=== PATIENT | female | born 1945 | race Two or more races ===

== ENCOUNTER 2024-08-19 17:38 | Inpatient (IN) | payer MEDICARE, SELFPAY ==
[2024-08-19] VITALS (10 sets, daily range): BP systolic 140–177; BP diastolic 55–91; PULSE 79–104; RESP 17–98; TEMP 36.4–36.8; O2SAT 96–99
--- NOTE | 2024-08-19 17:44 | EKG_ITS ---
[facility] Test Date: 2024-08-19 Pat Name: STEVEN HARTLEY Department: Room: - Gender: Female 20 Dealer: : 1945 Requested By: Elen Jordan Order Number: [id number] Reading MD: Elen Jordan Measurements Intervals [place] Rate: 91 P: 61 MN: 164 QRS: 11 QRSD: 140 T: 100 QT: 403 QTc: 497 Interpretive Statements SINUS RHYTHM LEFT BUNDLE BRANCH BLOCK [120+ ms QRS DURATION, 80+ ms Q/S IN V1/V2, 85+ ms R IN I/aVL/V5/V6] No previous ECG available for comparison /store/S0/[id number].pdf
--- NOTE | 2024-08-19 17:44 | XR_ITS ---
Examination: CTA carotids with intravenous contrast CTA brain, head with intravenous contrast. 2-D sagittal, coronal reconstructions. 3-D reconstructions. Exam date and time: August 19, 2024 1757 hrs. Indications: Stroke alert, onset slurred speech focal neurologic deficit today CTDI: vol (mGy) 15.9 DLP: (mGycm) 426 Technique: Multiple CTA axial brain, head carotid images post intravenous contrast injection 75 cc, [id number]. 2-D sagittal, coronal reconstructions. 3-D reconstructions, 3-D post processing including vascular maximum intensity projection images. Low dose protocols were performed. One or more of the following dose reduction techniques were used; automated exposure control, adjustment of the mA and/or KV according to patient size, use of iterative reconstruction technique. Findings: 6 mm right thyroid nodule Small blebs in the upper right lung zone Moderate calcification left carotid bifurcation but no critical stenoses involving left carotid bifurcation left common carotid artery or internal carotid artery in the neck Very heavy calcification at the right carotid bifurcation and the origin of the right internal carotid artery, estimated 70-80% stenosis Codominant vertebral arteries with no critical stenoses No cerebral large vessel arterial occlusions or thrombus Impression: Very heavy calcification right carotid bifurcation and origin right internal carotid artery, estimated 70-80% stenosis No cerebral large vessel occlusions or thrombus
--- NOTE | 2024-08-19 17:44 | XR_ITS ---
Examination: CT brain head without contrast. 2-D sagittal coronal reconstructions Date and time of exam:August 19, 2024 1747 hrs. Indications: Stroke alert, onset slurred speech unsteady gait beginning 10:00 AM this morning CTDI: vol (mGy):46.1 DLP: (mGycm):901 Technique: Multiple CT axial sections of the brain have been obtained, 5 mm slice thickness. Contrast has not been administered. 2-D sagittal, coronal reconstructions have been obtained Low dose protocols were performed. One or more of the following dose reduction techniques were used; automated exposure control, adjustment of the mA and/or KV according to patient size, use of iterative reconstruction technique. Findings: No significant ventricular enlargement. Small cerebral calcifications noted on the CT brain scan January 21, 2010 Intra-axial or extra-axial hemorrhage density is not seen. No mass effect or midline shift Basal cisterns are not remarkable. Fourth ventricle is midline. Cranial vault intact. Impression: Negative for acute hemorrhage, mass effect or midline shift
--- NOTE | 2024-08-19 17:45 | EDNOTE_ITS ---
Neuro Symptoms Deficit-RME/HPI General Chief Complaint: Neuro Symptoms/Deficit Stated Complaint: SLURR SPEECH UNSTEADY GATE SINCE 1000 Time Seen by Provider: 08/19/24 17:44 Arrival date/time: 08/19/24 17:38 RME / HPI RME / HPI Narrative: 79-year-old female patient with significant history of hypertension, hypercholesterolemia, was brought in by her son for evaluation regarding strokelike symptoms. Patient was noted to have strokelike symptoms described as slurring of speech, unsteady gait, since 10:00 this morning. Patient denies any headache denies any dizziness. Denies any vomiting denies any chest pain denies any recent fall or trauma. Denies any abdominal pain denies any weakness both upper lower extremity. Patient is able to ambulate with assistance. Related Data Home Medications ?Medication ?Instructions ?Recorded ?Confirmed loratadine 10 mg tablet (Claritin) 10 mg PO QDAY #0 tabs 02/21/14 03/31/22 aspirin 81 mg tablet,delayed 81 mg PO QDAY 03/28/22 03/31/22 release Allergies Allergy/AdvReac Type Severity Reaction Status Date / Time codeine Allergy Severe Dizziness Verified 03/28/22 14:09 Review of Systems Review of Systems Narrative Review of Systems: Review of system reviewed and within normal limits except mentioned in HPI ED Exam Narrative Physical exam: VITAL SIGNS: Reviewed. GENERAL APPEARANCE: Alert and interactive, follows commands, no acute distress, HEAD AND FACE: Non-traumatic. ENT: PERRL, pink conjunctivitis, eyelid no trauma, Mucous membrane moist. NECK: Supple, nontender, no nuchal rigidity. CHEST: No tenderness, no crepitus, no paradoxical movement, no retractions. LUNGS: Clear, well ventilated, symmetric, no rales, no wheezing, no ronchi, no stridor, good breath sounds bilaterally. HEART: Regular rate, regular rhythm, no murmur, no gallops. ABDOMEN: Soft, positive bowel sounds, nondistended, no guarding, nontender, no rebound, no masses, RECTAL: Deferred. GENITAL: Deferred. NEUROLOGICAL: Gross motor function intact sensory function intact, Appropriate for age. MUSCULOSKELETAL: low back nontender, full range of motion. EXTREMITIES: Nontender, full range of motion. SKIN: Color pink, dry, no rash, no lacerations, no abrasions, no contusions. LYMPHATICS: Deferred. Course Quality Measures none Orders Category Date Time Status Bedside Blood Glucose NOW Care 08/19/24 17:44 Active COVID-19 Screening Questionnaire NOW Care 08/19/24 20:05 Active COVID-19 Screening Questionnaire NOW Care 08/19/24 20:07 Active Gauge Maker NOW Care 08/19/24 17:44 Active Continuous Pulse Oximetry NOW Care 08/19/24 17:44 Completed Decision to Admit X1 Care 08/19/24 20:05 Active Decision to Admit X1 Care 08/19/24 20:07 Active EKG (ED ONLY) *Do not use* NOW Care 08/19/24 17:44 Completed In and Out Catheter NEEDED Care 08/19/24 17:44 Active Insert IV NOW Care 08/19/24 17:44 Active NIH Stroke Scale now Care 08/19/24 17:44 Active NPO NOW Care 08/19/24 17:44 Active Nurse Swallow Screen x1 Care 08/19/24 17:44 Active Consult to Neurology / Tele-Neurology Routine Cons 08/19/24 17:[address] angio stroke protocol Stat Exams 08/19/24 17:[address] stroke protocol Stat Exams 08/19/24 17:44 Completed EKG (ED Only) Stat Exams 08/19/24 17:44 Draft CBC Stat Lab 08/19/24 17:45 Completed Comprehensive Metabolic Panel Stat Lab 08/19/24 17:45 Completed Drug Screen,Urine Stat Lab 08/19/24 19:15 Completed Magnesium Stat Lab 08/19/24 17:45 Completed Partial Thromboplastin Time Stat Lab 08/19/24 17:45 Completed Prothrombin Time with INR Stat Lab 08/19/24 17:45 Completed Troponin I Stat Lab 08/19/24 17:45 Completed Urinalysis Stat Lab 08/19/24 19:15 Completed Urine Culture Stat Lab 08/19/24 19:15 Received Aspirin Med 08/19/24 18:14 Discontinued 325 mg PO X1 ONE Ondansetron Inj [Zofran Inj] Med 08/19/24 17:44 Active 4 mg IV Q4HR PRN Potassium Chloride [K-Dur] Med 08/19/24 20:03 Discontinued 40 meq PO X1 ONE Oxygen Delivery NOW RT 08/19/24 17:44 Active Vital Signs Vital signs: Vital Signs Temperature 98.3 F 08/19/24 17:41 Pulse Rate 104 H 08/19/24 17:41 Respiratory Rate 18 08/19/24 17:41 Blood Pressure 172/78 H 08/19/24 17:41 Pulse Oximetry (%) 96 08/19/24 17:41 Oxygen Delivery Method Room Air 08/19/24 17:41 Neuro Symptoms / Deficit MDM Narrative MDM Narrative:: 79-year-old female patient with significant history of hypertension, hypercholesterolemia, was brought in by her son for evaluation regarding strokelike symptoms. Patient was noted to have strokelike symptoms described as slurring of speech, unsteady gait, since 10:00 this morning. Patient denies any headache denies any dizziness. Denies any vomiting denies any chest pain denies any recent fall or trauma. Denies any abdominal pain denies any weakness both upper lower extremity. Patient is able to ambulate with assistance. Stroke alert was initiated right away on my initial evaluation. Patient's workup today all came back unremarkable except for potassium is slightly low, 3.2. CT scan of the head came back unremarkable CTs angiogram of the head and neck also came back unremarkable. I spoke with teleneurologist and recommend admission and recommends full dose of aspirin x 1 and 81 mg of aspirin tomorrow. Patient is to be admitted for stroke workup. Patient data External records reviewed:: None Clinical information provided by:: patient Social determinants that could affect healthcare access:: none Patient has the following chronic illnesses:: Hypertension How is presenting disease/condition affected by chronic disease/condition?: exacerbated by Evaluation data The following diagnostics were reviewed and interpreted by me:: lab results, radiology exam(s) and EKG tracing(s) Lab and/or radiology exams considered but not ordered:: None Interpretation Summary: EKG showed sinus rhythm, ventricular rate of 91 bpm, PA interval 164 MS, ST segment elevation depression noted. CT scan of the head came back unremarkable except angiogram of the neck came back unremarkable. Laboratory Significant potassium 3.2 otherwise unremarkable. Medications / Prescriptions Medications or Prescriptions considered but not ordered:: None Medication administrations:: Medication Administration History Ondansetron HCl (Ondansetron Inj 2 Mg/Ml Inj 2 Ml) 4 mg IV Q4HR PRN PRN Reason: NAUSEA OR VOMITING Stop: 09/18/24 17:43 Discontinued Medications Aspirin (Aspirin 325 Mg Tablet) 325 mg PO X1 ONE Stop: 08/19/24 18:15 Last Admin: 08/19/24 18:25 Dose: 325 mg Documented By: AM Potassium Chloride (Potassium Chloride 20 Meq Tabcr) 40 meq PO X1 ONE Stop: 08/19/24 20:04 Aspirin, potassium, Zofran Consultations Consultation(s) initiated? (list below): No Diagnosis Neuro Differential Diagnosis: delirium and cerebrovascular accident Most likely diagnosis given after review of the tests above:: Strokelike symptoms Admission Indicated Admission indicated?: indicated Explain why admission is indicated or not indicated:: Patient is to be admitted for stroke workup Admission Request Was there a request for admission?: Yes Admission Attestation Admission request attestation: Discussed case with resident from Hospitalist service regarding admission. Discussed patients ED course, exam findings, labs, and radiology results. The Hospitalist [agrees, ] to accept the patient for admission. Disposition Plan Disposition Plan: Admit Discharge Plan Plan Patient Disposition: Admit Acute Care w/in Hospital Disposition Comment: stable Prescriptions/Referrals Prescriptions/Med Rec: No Action loratadine [Claritin] 10 MG tablet 10 mg PO QDAY Qty: 0 aspirin 81 mg Tablet,Delayed Release (Dr/Ec) 81 mg PO QDAY Referrals: Ag Rosa MD [Primary Care Provider] - In 1 week Problem List Clinical Impression: Stroke-like symptom Patient/Caregiver Discharge Instructions Discharge Activity: activity as tolerated Print Language: Montenegrin Stand Alone Forms: Lillian Award Info., Patient Portal Info Letter
[2024-08-19 18:02] LABS: Basophils # (Auto) 0.1 Thou/mm3 (0.0-0.2); Basophils % (Auto) 1 % (0-2.5); Eosinophils # (Auto) 0.1 Thou/mm3 (0.0-0.5); Eosinophils % (Auto) 2 % (0-10); Hemoglobin 13.7 g/dL (12.0-16.0); Immature Granulocytes % (Auto) 0 % (0-0); Immature Granulocytes Auto 0.01 Thou/mm3 (0.00-0.00); Lymphocytes # (Auto) 1.7 Thou/mm3 (1.0-4.8); Lymphocytes % (Auto) 28 % (10-50); Mean Corpuscular HGB Conc 33.4 g/dl (31.0-37.0); Mean Corpuscular Hemoglobin 30.4 pg (25.0-35.0); Mean Corpuscular Volume 91 fL (80-100); Monocytes # (Auto) 0.5 Thou/mm3 (0.0-0.8); Monocytes % (Auto) 9 % (0-12); Neutrophils # (Auto) 3.6 Thou/mm3 (1.8-7.7); Neutrophils % (Auto) 60 % (37-80); Nucleated Red Blood Cell % 0 /100 WBC (0); Platelet Count 212 Thou/mm3 (140-440); RDW Standard Deviation 40.8 fL (36.4-46.3); Red Blood Count 4.51 Miln/mm3 (4.00-5.20); White Blood Count 6.1 Thou/mm3 (3.6-11.0)
[2024-08-19 18:19] LABS: INR 0.9 (0.9-1.3); Partial Thromboplastin Time 25.6 Seconds (22.0-36.0); Prothrombin Time 10.3 Seconds (9.0-12.2)
[2024-08-19 18:21] LABS: Anion Gap 7 (7-16); Blood Urea Nitrogen 17 mg/dL (9-23); Carbon Dioxide 26.1 mMol/L (20.0-31.0); Chloride 107 mMol/L (98-107); Potassium 3.2 mMol/L (3.4-5.1); Sodium 140 mMol/L (136-145)
[2024-08-19 18:22] LABS: Alanine Aminotransferase 12 U/L (10-49); Albumin, Serum 4.5 gm/dL (3.4-4.8); Albumin/Globulin Ratio 1.7 (1.2-2.2); Alkaline Phosphatase 146 U/L (46-116); Aspartate Amino Transferase 14 U/L (0-34); BUN/Creatinine Ratio 21 Ratio (12-20); Bilirubin,Total 0.2 mg/dL (0.3-1.2); Calcium 9.1 mg/dL (8.3-10.6); Calcium (Corrected) 9.1 mg/dL (8.5-10.1); Creatinine (Component) 0.8 mg/dL (0.6-1.3); Globulin 2.6 gm/dL (2.3-3.5); Glucose 169 mg/dL (74-106); Osmolality,Calculated 284 (275-295); Total Protein 7.1 gm/dL (5.7-8.2); Troponin I < 0.020 ng/mL (0.0-0.045); eGFR > 60 See Note
[2024-08-19] MEDS: Aspirin 325 MG TABLET PO (18:25)
--- NOTE | 2024-08-19 19:08 | ESCONSULT_ITS ---
Tele Neuro Consultation Consultation Date 08/19/24 Most Recent Vital Signs Last Vital Signs Temp 97.6 F 08/19/24 18:33 Pulse 93 08/19/24 18:33 Resp 17 08/19/24 18:33 BP 177/81 H 08/19/24 18:33 Pulse Ox 98 08/19/24 18:33 O2 Del Method Room Air 08/19/24 17:41 Laboratory-Coagulation Panel PT 10.3 Seconds (9.0-12.2) 08/19/24 17:45 INR 0.9 (0.9-1.3) 08/19/24 17:45 APTT 25.6 Seconds (22.0-36.0) 08/19/24 17:45 Consultation Narrative [facility] Patient Name:???STEVEN HARTLEY Date of :???1945 Identification Number:??? Date of Service:???08/19/2024 17:52:10 Diagnosis:?R47.81 - Slurred speech Impression: ?79 year old female with hypertension and hyperlipidemia, here with 2 weeks of gait stability and a transient episode of slurred speech noted by her son this morning. Currently she is back to baseline with a Stroke Scale of zero. Head CT is negative for acute abnormalities. She will be admitted for stroke rule out. ? ?PLAN ?- CTA head/neck ?- MRI brain w/o contrast ?- TTE w/bubble ?- check a1c and LDL ?- monitor on tele for afib ?- neuro to follow --- ? Our recommendations are outlined below. Recommendations: ? Stroke/Telemetry Floor ? Neuro Checks ? Bedside Swallow Eval ? DVT Prophylaxis ? IV Fluids, Normal Saline ? Head of Bed 30 Degrees ? Euglycemia and Avoid Hyperthermia (PRN Acetaminophen) Sign Out: ? Discussed with Emergency Department Provider Advanced Imaging: Advanced Imaging Deferred because: Non-disabling symptoms as verified by the patient; no cortical signs so not consistent with LVO Metrics: Last Known Well: 08/19/2024 10:00:00 Dispatch Time: 08/19/2024 17:52:10 Arrival Time: 08/19/2024 17:44:00 Initial Response Time: 08/19/2024 17:56:20Symptoms: slurred speech, gait imbalance. Initial patient interaction: 08/19/2024 18:04:29 NIHSS Assessment Completed: 08/19/2024 18:05:09Patient is not a candidate for Thrombolytic. Thrombolytic Medical Decision: 08/19/2024 18:05:10Patient was not deemed candidate for Thrombolytic because of following reasons: LKW outside 4.[address] head showed no acute hemorrhage or acute core infarct. Primary Provider Notified of Diagnostic Impression and Management Plan on: 08/19/2024 18:20:05 History of Present Illness:Patient is a 79 year old Female. Patient was brought by private transportation with symptoms of slurred speech, gait imbalance. 79-year-old female with hypertension and hyperlipidemia who is here with two weeks of gait instability. Son reports that patient has been off balance and not acting like a normal self. He noted an episode of slurred speech around 10:00 a.m. this morning, became concerned and brought her here to the ER. On my assessment Stroke Scale was zero. Exam is non-focal. Patient herself reports feeling at her baseline. Past Medical History: ?Hypertension ?Hyperlipidemia No Anticoagulant use? Antiplatelet use:?Yes?asa Reviewed EMR for current medications Allergies:? Reviewed Social History: Drug Use: No Family History: There is no family history of premature cerebrovascular disease pertinent to this consultation ROS : 14 Points Review of Systems was performed and was negative except mentioned in HPI. Past Surgical History: There Is No Surgical History Contributory To Today?s Visit Examination: 1A: Level of Consciousness - Alert; keenly responsive?+ 0 1B: Ask Month and Age - Both Questions Right?+ 0 1C: Blink Eyes & Squeeze Hands - Performs Both Tasks?+ 0 2: Test Horizontal Extraocular Movements - Normal?+ 0 3: Test Visual Mayes - No Visual Loss?+ 0 4: Test Facial Palsy (Use Grimace if Obtunded) - Normal symmetry?+ 0 5A: Test Left Arm Motor Drift - No Drift for 10 Seconds?+ 0 5B: Test Right Arm Motor Drift - No Drift for 10 Seconds?+ 0 6A: Test Left Leg Motor Drift - No Drift for 5 Seconds?+ 0 6B: Test Right Leg Motor Drift - No Drift for 5 Seconds?+ 0 7: Test Limb Ataxia (FNF/Heel-Anderson) - No Ataxia?+ 0 8: Test Sensation - Normal; No sensory loss?+ 0 9: Test Language/Aphasia - Normal; No aphasia?+ 0 10: Test Dysarthria - Normal?+ 0 11: Test Extinction/Inattention - No abnormality?+ 0 NIHSS Score:?0 Pre-Morbid Modified [place] Scale:0 Points = No symptoms at all Spoke with :?er provider This consult was conducted in real time using interactive audio and video technology. Patient was informed of the technology being used for this visit and agreed to proceed. Patient located in hospital and provider located at home/office setting. Patient is being evaluated for possible acute neurologic impairment and high probability of imminent or life-threatening deterioration. I spent total of 20 minutes providing care to this patient, including time for face to face visit via telemedicine, review of medical records, imaging studies and discussion of findings with providers, the patient and/or family. Dr Aide Mora [facility] For Inpatient follow-up with [facility] physician please call [facility] at . As we are not an outpatient service for any post hospital discharge needs please contact the hospital for assistance. If you have any questions for the [facility] physicians or need to reconsult for clinical or diagnostic changes please contact us via [facility] at .
[2024-08-19 19:26] LABS: Collection Type, Urine Clean Catch
[2024-08-19 19:51] LABS: Amphetamine/Methamp Scrn,U Negative (Negative); Barbiturate Screen,Urine Negative (Negative); Benzodiazepines Screen,Urine Negative (Negative); Benzoylecgonine Screen, Ur Negative (Negative); Fentanyl Screen,Urine Negative (Negative); Opiate Screen,Urine Negative (Negative); THC Screen,Urine Negative (Negative)
[2024-08-19 19:59] LABS: Bilirubin,Urine Negative (Negative); Blood,Urine Trace (Negative); Clarity,Urine Clear (Clear/Hazy); Color,Urine Lt-Yellow (Lt Yel-Yel); Glucose, Urine Negative (Negative); Ketones,Urine Negative (Negative); Leukocyte Esterase,Urine Positive (Negative); Nitrite,Urine Negative (Negative); PH,Urine 6.5 (5.0-7.0); Protein,Urine Trace (Neg - Trace); RBC,Urine 14 /hpf (0-3); Specific Gravity,Urine 1.044 (1.001-1.035); Squamous Epithelial Cell,Urine < 1 /hpf (0-5); Urobilinogen,Urine Negative mg/dL (0.0-1.0); WBC,Urine 29 /hpf (0-5)
[2024-08-19] MEDS: POTASSIUM CHLORIDE 20 mEq TABCR 40 MEQ PO (20:22)
[2024-08-19 22:30] LABS: Glucose Estimated Average 114 mg/dL (80-131); Hemoglobin A1C 5.6 % Hgb (4.8-6.0)
--- NOTE | 2024-08-19 22:31 | ESHP_ITS ---
<Statement entered by Kenny Couch MD - 08/20/24 00:00> 79-year-old female with past medical history of hypertension hyperlipidemia presents to the ED with chief complaint of slurred speech today at 10 AM that began today at 10 AM. Stroke alert was called in the ER and teleneuro was consulted who recommended admission for further stroke workup. CT head negative and CTA head and neck completed which showed 80% stenosis of right internal carotid artery. At the time of evaluation, NIHSS score is 0 and patient returned to baseline. Will admit to telemetry as per neurology recommendations for further stroke workup, aspiration precautions, further imaging pending. Kenny Couch MD Documentation for date of: 08/19/24 HPI History of Present Illness History of present illness: The patient is an 79year old female with a past medical history of hypertension and hyperlipidemia who was brought in by her son on 08/19/2024 with complaints of unsteady gait and slurring of speech. Per patient and son at bedside, patient has had some dizziness and unsteady gait for about a week associated with a few episodes of nausea and vomiting. She has had 3 PCP visits since onset as well as a cardiology appointment for evaluation. The patient was started on meclizine but continues to have dizziness and unsteady gait. At 10 AM today, son noted that she had some slurred speech, however no other focal neurologic deficits. Strength and sensation were intact and she had no weakness in any extremities. The patient was brought to the ED for evaluation. ED course: In the ED, patient was afebrile and initially hypertensive with a blood pressure 172/78, however saturating 99% on room air. Head CT was done which was negative and teleneuro was consulted per stroke protocol. Head/neck CTA and right carotid bifurcation calcification and extremity 70 to 80% stenosis of the right internal carotid artery. Labs were otherwise unremarkable except for potassium 3.2. Per teleneurology recommendations, the patient received aspirin 325 mg in the ED and has been admitted for stroke workup. PMHx-as above PSHx-nil Home meds-aspirin, amlodipine, losartan-HCTZ Review of Systems Review of Systems Narrative Review of Systems: GENERAL: Denies fevers/chills or diaphoresis. HEENT: Denies headache or visual/hearing changes. Denies nasal discharge. NEURO: Admits unsteady gait and some difficulty speaking CARDIO: Denies chest pain or palpitations. PULM: Denies SOB, coughing, or wheezing. GI: Denies abdominal pain, N/V/C/D/reflux/gas, bright red blood per rectum or melena. Reports having BMs. URO: Denies burning/itching/pain/urinary changes. MSK/EXT/SKIN: Admits pain in right shoulder with limited mobility PSYCH: Cooperative, pleasant mood & affect. Exam Vital Signs Temp Pulse Resp BP Pulse Ox O2 Del Method 97.6 F 79 17 144/85 H 99 Room Air 08/19/24 18:33 08/19/24 22:00 08/19/24 22:00 08/19/24 22:00 08/19/24 22:00 08/19/24 17:41 Narrative Exam GENERAL: AAOX3 NEURO: Strength 5/5 in RUE and RLE, some weakness in LUE but not out of proportion to pain in shoulder, no pronator drift, no intention tremors, normal reflexes. HEENT: Moist mucosa. Eyes open, symmetrical, & clear CARDIO: No chest pain on palpation. Heart RRR, no obvious murmurs PULM: No noted coughing/dyspnea. Lungs CTA B/L GI: Abdomen soft, nondistended, no pain on palpation. 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 SKIN/MSK/EXT: Limited ROM in right shoulder. Results: Labs 08/19/24 17:45 08/19/24 17:45 Labs: Short CBC 08/19/24 Range/Units 17:45 WBC 6.1 (3.6-11.0) Thou/mm3 Hgb 13.7 (12.0-16.0) g/dL Hct 41.0 (36.0-46.0) % Plt Count 212 (140-440) Thou/mm3 BMP 08/19/24 17:45 Sodium 140 Potassium 3.2 L Chloride 107 Carbon Dioxide 26.1 BUN 17 Creatinine 0.8 Glucose 169 H Calcium 9.1 Cardiac Enzymes 08/19/24 Range/Units 17:45 Troponin I < 0.020 (0.0-0.045) ng/mL Liver Function 08/19/24 Range/Units 17:45 Total Bilirubin 0.2 L (0.3-1.2) mg/dL AST 14 (0-34) U/L ALT 12 (10-49) U/L Alkaline Phosphatase 146 H (46-116) U/L Albumin 4.5 (3.4-4.8) gm/dL Urine 08/19/24 Range/Units 19:15 Urine Color Lt-Yellow (Lt Yel-Yel) Urine Clarity Clear (Clear/Hazy) Urine pH 6.5 (5.0-7.0) Ur Specific [place] 1.044 H (1.001-1.035) Urine Protein Trace (Neg - Trace) Urine Glucose (UA) Negative (Negative) Quality Measures Quality Measures none Advance care planning discussed with:: patient and child Medications Home Medications and Allergies Home Medications ?Medication ?Instructions ?Recorded ?Confirmed ?Type loratadine 10 mg tablet (Claritin) 10 mg PO QDAY #0 tabs 02/21/14 03/31/22 History aspirin 81 mg tablet,delayed 81 mg PO QDAY 03/28/22 03/31/22 History release Allergies Allergy/AdvReac Type Severity Reaction Status Date / Time codeine Allergy Severe Dizziness Verified 03/28/22 14:09 Visit Medications Acetaminophen (Acetaminophen 325 Mg Tablet) 650 mg PO Q6H PRN PRN Reason: Parikh 1-3 or Fever >100.5 Stop: 09/18/24 21:43 Aspirin (Aspirin Ec 81 Mg Tabec) 81 mg PO QDAY MELVA Stop: 09/19/24 08:59 Labetalol HCl (Labetalol Inj 5 Mg/Ml Vial 20 Ml) 10 mg IVP Q6HR PRN PRN Reason: SBP>220 Stop: 09/18/24 21:53 Ondansetron HCl (Ondansetron Inj 2 Mg/Ml Inj 2 Ml) 4 mg IV Q6H PRN; Protocol PRN Reason: NAUSEA OR VOMITING Stop: 09/18/24 21:43 Discontinued Medications Aspirin (Aspirin 325 Mg Tablet) 325 mg PO X1 ONE Stop: 08/19/24 18:15 Last Admin: 08/19/24 18:25 Dose: 325 mg Ondansetron HCl (Ondansetron Inj 2 Mg/Ml Inj 2 Ml) 4 mg IV Q4HR PRN PRN Reason: NAUSEA OR VOMITING Stop: 09/18/24 17:43 Potassium Chloride (Potassium Chloride 20 Meq Tabcr) 40 meq PO X1 ONE Stop: 08/19/24 20:04 Last Admin: 08/19/24 20:22 Dose: 40 meq Assessment & Plan Assessment Summary: The patient is an 81-year-old female with past medical history of hy hypertension and hyperlipidemia presented to the ED on 08/19/2024 with complaints of unsteady gait and slurring of speech. She is being admitted for stroke workup. #Acute CVA versus TIA The patient presented with a 1 week history of dizziness and unsteady gait with few episodes of nausea and vomiting. Since onset she has had PVCs as well as a cardiology appointment for evaluation. She was started on meclizine but continues to have dizziness and risk of worsening in her gait. Today, son noted that she has some slurred speech, however no other focal neurologic deficits. In the ED, stroke protocol was initiated and teleneuro was consulted. The patient was evaluated and NIHSS score was 0. Head CT was done which was negative and teleneuro was consulted per stroke protocol. Head/neck CTA and right carotid bifurcation calcification and extremity 70 to 80% stenosis of the right internal carotid artery. EKG showed sinus rhythm with LBBB. Labs were otherwise unremarkable except for potassium 3.2. Per teleneurology recommendations, the patient received aspirin 325 mg in the ED and has been admitted for stroke workup. Plan: -Admit to telemetry -Aspirin 81 mg daily -Atorvastatin 40 mg daily (pending lipid panel) -MRI stroke protocol -Echocardiogram with bubble study -Allow permissive hypertension for the next 24 hours -Follow-up lipid panel, TSH and A1c #History of hypertension #Hx of hyperlipidemia Patient has a history of hypertension and is on amlodipine 2.5 mg daily as well as losartan/HCTZ. Blood pressure on admission was initially elevated at 172/78. Will allow permissive hypertension for the next 24 hours with as needed IV labetalol if SBP is greater than 220. 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 Plan: -Permissive hypertension -IV labetalol 10 mg every 6 hours for SBP greater than 220. #History of CAD status post stents The patient has a history of CAD and while unsure, thinks that she had a stent placement done in [place]. She is on aspirin 81 mg daily Plan: -Continue home meds Health maintenance: Dispo: Tele Diet: Cardiac DVT: SCDs Bull: None Lines: Peripheral Med Rec: Pending, f/u PT: Ordered Code: Full Case was discussed with attending physician, Dr Khoa Harris MD PGY-1
[2024-08-20] VITALS (10 sets, daily range): BP systolic 116–154; BP diastolic 54–79; PULSE 67–110; RESP 12–99; TEMP 35.7–36.7; O2SAT 95–99; BMI 25.9
--- NOTE | 2024-08-20 | XR_ITS ---
Examinations: MRI Brain without intravenous contrast. MRA brain without intravenous contrast. MRA carotids without intravenous contrast 3-D vascular reconstructions Date and time of exam: August 20, 2024 1609 hrs. Indications: Stroke alert August 19, 2024, onset slurred speech unsteady gait ataxia beginning 10:00 AM yesterday Technique: Multiple axial and sagittal images of the brain have been obtained MRA brain carotid images without contrast obtained, including 3-D postprocessing, vascular maximum intensity projection images Findings: [place] is not enlarged. The optic chiasm and infundibular stalk are not remarkable. Prepontine and interpeduncular cisterns are not enlarged. No localized enlargement of the medulla or fernie. Fourth ventricle and cerebellar tonsils normal in position. Subacute hemorrhage is not seen. Fourth ventricle is midline. Mass in the cerebellopontine angle region is not evident. 7th and 8th nerve complexes exhibits symmetry. Globes are symmetrical with no retro-orbital mass. Increased white matter signal moderate Diffusion-weighted images demonstrate 13 x 10 mm focus restricted diffusion left cerebellar peduncle, diffusion image 7 5 mm focus restricted diffusion left inferior frontal lobe region, image 10 Mass-effect upon the ventricular system is not identified. MRA carotid images no significant carotid stenoses. MRA brain images no large vessel occlusions Impression: 13 x 10 mm acute infarct left cerebellar peduncle Suspicious for 5 mm acute infarct left inferior frontal lobe
--- NOTE | 2024-08-20 00:22 | PC.NURSE ---
REPORT CALLED TO ARTI DE LOS SANTOS. ALL QUESTIONS ASKED AND ANSWERED. PATIENT TRANSPORTED TO ROOM BY STAFF. REMAINS ON ROOM AIR. SON AT BEDSIDE. NO DISTRESS AT TRANSFER.
--- NOTE | 2024-08-20 01:32 | PC.NURSE ---
Pt came to unit with no diet ordered. ARTI Amos notified Dr. Harris that the patient has no diet. Dr. Harris told ARTI Amos I will put one .
[2024-08-20 06:28] LABS: Basophils % (Auto) 1 % (0-2.5); Eosinophils # (Auto) 0.1 Thou/mm3 (0.0-0.5); Eosinophils % (Auto) 2 % (0-10); Hematocrit 37.2 % (36.0-46.0); Hemoglobin 12.1 g/dL (12.0-16.0); Immature Granulocytes % (Auto) 0 % (0-0); Immature Granulocytes Auto 0.01 Thou/mm3 (0.00-0.00); Lymphocytes # (Auto) 1.4 Thou/mm3 (1.0-4.8); Lymphocytes % (Auto) 28 % (10-50); Mean Corpuscular HGB Conc 32.5 g/dl (31.0-37.0); Mean Corpuscular Hemoglobin 29.8 pg (25.0-35.0); Mean Corpuscular Volume 92 fL (80-100); Monocytes # (Auto) 0.5 Thou/mm3 (0.0-0.8); Monocytes % (Auto) 11 % (0-12); Neutrophils # (Auto) 2.9 Thou/mm3 (1.8-7.7); Neutrophils % (Auto) 58 % (37-80); Nucleated Red Blood Cell % 0 /100 WBC (0); Platelet Count 177 Thou/mm3 (140-440); RDW Standard Deviation 41.1 fL (36.4-46.3); Red Blood Count 4.06 Miln/mm3 (4.00-5.20); White Blood Count 4.9 Thou/mm3 (3.6-11.0)
[2024-08-20 06:53] LABS: Alanine Aminotransferase 13 U/L (10-49); Albumin, Serum 3.9 gm/dL (3.4-4.8); Albumin/Globulin Ratio 1.8 (1.2-2.2); Alkaline Phosphatase 117 U/L (46-116); Anion Gap 6 (7-16); Aspartate Amino Transferase 19 U/L (0-34); BUN/Creatinine Ratio 19 Ratio (12-20); Bilirubin,Total 0.3 mg/dL (0.3-1.2); Blood Urea Nitrogen 13 mg/dL (9-23); Calcium (Corrected) 9.1 mg/dL (8.5-10.1); Carbon Dioxide 26.6 mMol/L (20.0-31.0); Chloride 111 mMol/L (98-107); Cholesterol 174 mg/dL (132-200); Creatinine (Component) 0.7 mg/dL (0.6-1.3); Estimated Creatinine Clearance 54.2 mL/min (>60); Globulin 2.2 gm/dL (2.3-3.5); Glucose 96 mg/dL (74-106); HDL Cholesterol 58 mg/dL (40-60); LDL Cholesterol,Calculated 102 mg/dL (0-130); Magnesium 2.1 mg/dL (1.6-2.6); Osmolality,Calculated 286 (275-295); Phosphorous 3.8 mg/dL (2.4-5.1); Potassium 3.6 mMol/L (3.4-5.1); Sodium 144 mMol/L (136-145); Thyroid Stimulating Hormone 4.84 uIU/mL (0.55-4.78); Total Protein 6.1 gm/dL (5.7-8.2); Triglycerides 71 mg/dL (30-150); eGFR > 60 See Note
[2024-08-20] MEDS: ASPIRIN EC 81 MG TABEC PO (08:12)
[2024-08-20 08:47] LABS: Free T4 (Free Thyroxine) 0.98 ng/dL (0.89-1.76)
--- NOTE | 2024-08-20 12:31 | PD.RESPRO ---
Documentation for date of: 08/20/24 Subjective Subjective Interval history: Patient was seen and examined bedside. Son is present at the bedside and stated that she is almost at her normal baseline and her slurring speech was resolved. Vitals are stable. On examination there is no focal neurological deficit. MRI is pending and echo is pending. Patient stating that she had history of stents placed in her neck but unsure, son does not have any clue about that procedure. Will follow-up with MRI and echo. Exam Vital Signs Temp Pulse Resp BP Pulse Ox O2 Del Method 97.0 F 78 12 154/71 H 96 Room Air 08/20/24 08:00 08/20/24 08:45 08/20/24 08:45 08/20/24 08:00 08/20/24 08:00 08/20/24 08:00 Narrative Exam General: Awake. HEENT: Normocephalic, atraumatic, mucous membranes moist. Heart: Regular rate and rhythm, no murmurs. Lungs: Clear to auscultation with no wheezing or crackles. Abdomen: Soft, nondistended, nontender, positive bowel sounds. ?No guarding or rebound tenderness. Neurologic: Alert and oriented x3, no gross neurological deficit, and patient able to move all 4 extremities. Extremities: No edema. Arthritic changes are noted in hands Skin: No rash or ecchymoses. Objective Labs 08/21/24 05:03 08/21/24 05:03 Labs: Laboratory Results - last 24 hr 08/19/24 08/19/24 08/20/24 17:45 19:15 04:55 WBC 6.1 4.9 RBC 4.51 4.06 Hgb 13.7 12.1 Hct 41.0 37.2 MCV 91 92 MCH 30.4 29.8 MCHC 33.4 32.5 RDW Std Deviation 40.8 41.1 Plt Count 212 177 D Neut % (Auto) 60 58 Lymph % (Auto) 28 28 [place] % (Auto) 9 11 Eos % (Auto) 2 2 Baso % (Auto) 1 1 Neut # (Auto) 3.6 2.9 Lymph # (Auto) 1.7 1.4 [place] # (Auto) 0.5 0.5 Eos # (Auto) 0.1 0.1 Baso # (Auto) 0.1 0.0 Immature Gran # (Auto) 0.01 H 0.01 H Absolute Nucleated RBC 0.00 0.00 Immature Gran % 0 0 Nucleated RBC % 0 0 PT 10.3 INR 0.9 APTT 25.6 Sodium 140 144 Potassium 3.2 L 3.6 Chloride 107 111 H Carbon Dioxide 26.1 26.6 Anion Gap 7 6 L BUN 17 13 Creatinine 0.8 0.7 Estim Creat Clear Calc Not Performed. 54.2 L eGFR > 60 > 60 BUN/Creatinine Ratio 21 H 19 Glucose [address] Glu mg/dL 114 Hemoglobin A1c 5.6 Calculated Osmolality 284 286 Calcium 9.1 9.0 Corrected Calcium 9.1 9.1 Phosphorus 3.8 Magnesium 2.0 2.1 Total Bilirubin 0.2 L 0.3 AST 14 19 ALT 12 13 Alkaline Phosphatase 146 H 117 H D Troponin I < 0.020 Total Protein 7.1 6.1 Albumin 4.5 3.9 D Globulin 2.6 2.2 L Albumin/Globulin Ratio 1.7 1.8 Triglycerides 71 Cholesterol 174 LDL Cholesterol, Calc 102 HDL Cholesterol 58 Cholesterol/HDL Ratio 3.0 L TSH 4.84 H Free T4 0.98 Ur Collection Type Clean Catch Urine Color Lt-Yellow Urine Clarity Clear Urine pH 6.5 Ur Specific [place] 1.044 H Urine Protein Trace Urine Glucose (UA) Negative Urine Ketones Negative Urine Blood Trace Urine Nitrite Negative Urine Bilirubin Negative Urine Urobilinogen (Auto) Negative Ur Leukocyte Esterase Positive Urine RBC 14 H Urine WBC 29 H Ur Squamous Epith Cells < 1 Urine Bacteria None Urine Opiates Screen Negative Urine Fentanyl Screen Negative Ur Barbiturates Screen Negative U Amphetamin/Meth Scrn Negative U Benzodiazepines Scrn Negative U Cocaine Metab Screen Negative U Marijuana (THC) Screen Negative Quality Measures Quality Measures none Advance care planning discussed with:: patient Assessment & Plan Assessment Current Active Medications: Generic Name Dose Route Start Last Admin Trade Name Freq PRN Reason Stop Dose Admin Acetaminophen 650 mg 08/19/24 21:44 Acetaminophen 325 Mg Tablet PO 09/18/24 21:43 Q6H PRN Parikh 1-3 or Fever >100.5 Aspirin 81 mg 08/20/24 09:00 08/20/24 08:12 Aspirin Ec 81 Mg Tabec PO 09/19/24 08:59 81 mg QDAY MELVA Administration Labetalol HCl 10 mg 08/19/24 21:54 Labetalol Inj 5 Mg/Ml Vial 20 Ml IVP 09/18/24 21:53 Q6HR PRN SBP>220 Ondansetron HCl 4 mg 08/19/24 21:44 Ondansetron Inj 2 Mg/Ml Inj 2 Ml IV 09/18/24 21:43 Q6H PRN NAUSEA OR VOMITING Protocol Plan The patient is an 81-year-old female with past medical history of hy hypertension and hyperlipidemia presented to the ED on 08/19/2024 with complaints of unsteady gait and slurring of speech. She is being admitted for stroke workup. #Acute CVA versus TIA The patient presented with a 1 week history of dizziness and unsteady gait with few episodes of nausea and vomiting. Since onset she has had PVCs as well as a cardiology appointment for evaluation. She was started on meclizine but continues to have dizziness and risk of worsening in her gait. Today, son noted that she has some slurred speech, however no other focal neurologic deficits. In the ED, stroke protocol was initiated and teleneuro was consulted. The patient was evaluated and NIHSS score was 0. Head CT was done which was negative and teleneuro was consulted per stroke protocol. Head/neck CTA and right carotid bifurcation calcification and extremity 70 to 80% stenosis of the right internal carotid artery. EKG showed sinus rhythm with LBBB. Labs were otherwise unremarkable except for potassium 3.2. Per teleneurology recommendations, the patient received aspirin 325 mg in the ED and has been admitted for stroke workup. Lipid panel, HbA1c and TSH are within normal limits. Plan: -Admit to telemetry -Aspirin 81 mg daily -Atorvastatin 40 mg daily -MRI stroke protocol, pending -Echocardiogram with bubble study, pending -Allow permissive hypertension for the next 24 hours #History of hypertension #Hx of hyperlipidemia Patient has a history of hypertension and is on amlodipine 2.5 mg daily as well as losartan/HCTZ. Blood pressure on admission was initially elevated at 172/78. 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 Plan: -Blood pressures are within normal limits -Will continue to monitor blood pressures and titrate medications accordingly. # ?History of CAD status post stents The patient has a history of CAD and while unsure, thinks that she had a stent placement done in [place]. She is on aspirin 81 mg daily Plan: -Continue home meds Health maintenance: Dispo: Tele Diet: Cardiac DVT: SCDs Bull: None Lines: Peripheral PT: Ordered Code: Full Patient plan of care was discussed with the attending physician, Dr. Glory Mtz, PGY1 Attending Provider Attestation/Addendum I have discussed and was present for the essential components of the history, physical examination, diagnosis, and treatment plan with the resident. I agree with the patient's care as documented by the resident and amended herein by me. Tho Holder DO. Although this document has been carefully reviewed, there may still be some phonetic and other typographical errors. These errors are purely grammatical due to imperfections in the software program and should not be construed in any way to compromise the substance of the patient's medical care during this visit.
[2024-08-21] VITALS (9 sets, daily range): BP systolic 133–158; BP diastolic 65–77; PULSE 60–95; RESP 14–98; TEMP 36.1–36.3; O2SAT 95–97; BMI 25.9
[2024-08-21 05:26] LABS: Basophils # (Auto) 0.1 Thou/mm3 (0.0-0.2); Basophils % (Auto) 1 % (0-2.5); Eosinophils # (Auto) 0.1 Thou/mm3 (0.0-0.5); Eosinophils % (Auto) 2 % (0-10); Hematocrit 37.2 % (36.0-46.0); Hemoglobin 12.3 g/dL (12.0-16.0); Immature Granulocytes % (Auto) 0 % (0-0); Immature Granulocytes Auto 0.01 Thou/mm3 (0.00-0.00); Lymphocytes # (Auto) 1.7 Thou/mm3 (1.0-4.8); Lymphocytes % (Auto) 31 % (10-50); Mean Corpuscular HGB Conc 33.1 g/dl (31.0-37.0); Mean Corpuscular Hemoglobin 30.2 pg (25.0-35.0); Mean Corpuscular Volume 91 fL (80-100); Monocytes # (Auto) 0.5 Thou/mm3 (0.0-0.8); Monocytes % (Auto) 10 % (0-12); Neutrophils % (Auto) 56 % (37-80); Nucleated Red Blood Cell % 0 /100 WBC (0); Platelet Count 172 Thou/mm3 (140-440); RDW Standard Deviation 41.2 fL (36.4-46.3); Red Blood Count 4.07 Miln/mm3 (4.00-5.20); White Blood Count 5.3 Thou/mm3 (3.6-11.0)
[2024-08-21 05:50] LABS: Alanine Aminotransferase 18 U/L (10-49); Albumin, Serum 3.9 gm/dL (3.4-4.8); Albumin/Globulin Ratio 1.8 (1.2-2.2); Alkaline Phosphatase 107 U/L (46-116); Anion Gap 8 (7-16); Aspartate Amino Transferase 22 U/L (0-34); BUN/Creatinine Ratio 22 Ratio (12-20); Bilirubin,Total 0.4 mg/dL (0.3-1.2); Blood Urea Nitrogen 13 mg/dL (9-23); Calcium (Corrected) 9.1 mg/dL (8.5-10.1); Carbon Dioxide 27.4 mMol/L (20.0-31.0); Chloride 107 mMol/L (98-107); Creatinine (Component) 0.6 mg/dL (0.6-1.3); Estimated Creatinine Clearance 63.3 mL/min (>60); Globulin 2.2 gm/dL (2.3-3.5); Glucose 92 mg/dL (74-106); Magnesium 2.1 mg/dL (1.6-2.6); Osmolality,Calculated 283 (275-295); Phosphorous 4.1 mg/dL (2.4-5.1); Potassium 3.5 mMol/L (3.4-5.1); Sodium 142 mMol/L (136-145); Total Protein 6.1 gm/dL (5.7-8.2); eGFR > 60 See Note
[2024-08-21] MEDS: EZETIMIBE 10 MG TABLET PO (08:31)
[2024-08-21] MEDS: ASPIRIN EC 81 MG TABEC PO (08:31)
[2024-08-21] MEDS: amLODIPine BESYLATE 2.5 MG TABLET PO (08:31)
--- NOTE | 2024-08-21 09:20 | PC.SS ---
Destiney Chu is a 79 year old female admitted to [facility] for CVA R/O. SS conducted bedside contact with the patient to complete initial assessment and to discuss discharge planning, pt was accompanied by her son Bill. Patient confirmed demographic information. Patient identifies her son Bill Chu [phone] as her surrogate decision maker. Patient resides at home alone. Pt states she is typically able to complete all ADL?s independently, no need for any source of DME (PT recommended a FWW which will be ordered prior to DC). Pts PCP is (last visit was 08/15/24) and her pharmacy of choice is [facility]. The pt?s plan is to DC with Home Health due to PT recommendations, pt reports she will be staying with her son Bill at [address] [place] [address]. There is no preference for Home Health. Pts son will provide transportation upon DC. No further intervention required at this time, school social worker would be available to address any further concerns. DC Plan: Home w/ HH Contact: Bill Chu [phone] PCP: Shelley (last visit 08/15/24)
--- NOTE | 2024-08-21 12:23 | ESPR_ITS ---
Documentation for date of: 08/21/24 Subjective Subjective Interval history: Patient seen and examined at bedside this morning, with son at bedside. No acute overnight events. Vitals, labs reviewed, stable. MRI did reveal 2 infarcts (13 x 10 mm acute infarct left cerebellar peduncle, suspicious for 5 mm acute infarct left inferior frontal lobe), which was discussed with patient and her son. Added home amlodipine 2.5 mg for hypertension, and added Zetia for LDL reduction as patient is allergic to statins. PT eval noted, son agrees with home health with PT on discharge. Currently pending echo. Once done will follow-up with teleneurology for final recs, including addition of Plavix. Exam Vital Signs Temp Pulse Resp BP Pulse Ox O2 Del Method 97.2 F 60 18 141/70 H 97 Room Air 08/21/24 08:00 08/21/24 08:31 08/21/24 08:00 08/21/24 08:31 08/21/24 08:00 08/21/24 08:00 Narrative Exam Gen: AAOx3, resting comfortably, answers Qs appropriately, pleasant to speak with HEENT: NCAT, PERRLA, EOMI, MMM, no LAD CVS: normal S1, S2. RRR. No MRG Resp: CTA B/L. No rhonchi, rales, crackles or wheezing Abd: soft, non-tender, non-distended. BS+ in all 4 quadrants MSK: Good ROM in BUE & BLE. No edema or rash. Neuro: CN II-XII grossly intact. Strength 5/5 in BUE & BLE. No motor or sensory deficits noted Objective Labs 08/21/24 05:03 08/21/24 05:03 Labs: Laboratory Results - last 24 hr 08/21/24 05:03 WBC 5.3 RBC 4.07 Hgb 12.3 Hct 37.2 MCV 91 MCH 30.2 MCHC 33.1 RDW Std Deviation 41.2 Plt Count 172 Neut % (Auto) 56 Lymph % (Auto) 31 [place] % (Auto) 10 Eos % (Auto) 2 Baso % (Auto) 1 Neut # (Auto) 3.0 Lymph # (Auto) 1.7 [place] # (Auto) 0.5 Eos # (Auto) 0.1 Baso # (Auto) 0.1 Immature Gran # (Auto) 0.01 H Absolute Nucleated RBC 0.00 Immature Gran % 0 Nucleated RBC % 0 Sodium 142 Potassium 3.5 Chloride 107 Carbon Dioxide 27.4 Anion Gap 8 BUN 13 Creatinine 0.6 Estim Creat Clear Calc 63.3 eGFR > 60 BUN/Creatinine Ratio 22 H Glucose 92 Calculated Osmolality 283 Calcium 9.0 Corrected Calcium 9.1 Phosphorus 4.1 Magnesium 2.1 Total Bilirubin 0.4 AST 22 ALT 18 Alkaline Phosphatase 107 Total Protein 6.1 Albumin 3.9 Globulin 2.2 L Albumin/Globulin Ratio 1.8 Quality Measures Quality Measures VTE prophylaxis (SCDs) and stroke Suspected type of Stroke: Acute Ischemic Last known well (date): 08/19/24 Last known well (time): 10:00 Tenecteplase given: Reason(s) Tenecteplase not given: Outside the time window not given Rehab services: PT evaluation ordered VTE Prophylaxis: mechanical Antithrombotic by day 2:: ordered Statin ordered: not ordered (allergic) Anticoagulation ordered for A-fib or flutter (current or hx): not indicated Advance care planning discussed with:: patient and child Assessment & Plan Assessment Current Active Medications: Generic Name Dose Route Start Last Admin Trade Name Freq PRN Reason Stop Dose Admin Acetaminophen 650 mg 08/19/24 21:44 Acetaminophen 325 Mg Tablet PO 09/18/24 21:43 Q6H PRN Parikh 1-3 or Fever >100.5 Amlodipine Besylate 2.5 mg 08/21/24 09:00 08/21/24 08:31 Amlodipine Besylate 2.5 Mg Tablet PO 09/20/24 08:59 2.5 mg QDAY MELVA Administration Aspirin 81 mg 08/20/24 09:00 08/21/24 08:31 Aspirin Ec 81 Mg Tabec PO 09/19/24 08:59 81 mg QDAY MELVA Administration Ezetimibe 10 mg 08/21/24 09:00 08/21/24 08:31 Ezetimibe 10 Mg Tablet PO 09/20/24 08:59 10 mg QDAY MELVA Administration Labetalol HCl 10 mg 08/19/24 21:54 Labetalol Inj 5 Mg/Ml Vial 20 Ml IVP 09/18/24 21:53 Q6HR PRN SBP>220 Ondansetron HCl 4 mg 08/19/24 21:44 Ondansetron Inj 2 Mg/Ml Inj 2 Ml IV 09/18/24 21:43 Q6H PRN NAUSEA OR VOMITING Protocol Plan Patient is an 79-year-old female with HTN, HLD who was admitted for CVA workup after son noticed patient had slurring speech and gait instability. At this time, patient's symptoms have resolved. In the ER, teleneurology was consulted with NIHSS 0. MRI revealed 13 x 10 mm acute infarct left cerebellar peduncle, suspicious for 5 mm acute infarct left inferior frontal lobe. Patient was started on aspirin, however statin was held due to allergy. Echo is pending. Patient and her son would like patient to discharge with home health with PT, once patient stable for discharge. #Acute ischemic CVA Patient presented with a 1 week of unsteady gait, followed by slurred speech on 08/[address] negative; head and neck CTA showing very heavy calcification in right carotid bifurcation and origin of right internal carotid artery, estimated to be 70 to 80% stenosis; no cerebral LVO or thrombus MRI: 13 x 10 mm acute infarct left cerebellar peduncle, suspicious for 5 mm acute infarct left inferior frontal lobe Echo ordered Patient passed nurse swallow eval; PT recommended HH-PT on discharge Continue aspirin 81 mg daily. Zetia was added as patient is allergic to statins. Follow-up with outpatient cardiology in regards to possible PCSK9 inhibitors Once echo done, will follow-up with teleneurology for final recommendations, including possible Plavix for DAPT #HTN Initially on permissive hypertension, however SBP noted to be 150s overnight, therefore will restart home amlodipine 2.5 mg. If BP continues to be uncontrolled, will add home losartan 100 mg Continue monitor vital signs #HLD LDL increased from 81 in February 2024, now 102 July 2024 Likely contributing to CVA Patient allergic to statins, therefore started Zetia. To follow-up with cardiology outpatient in regards to possible PCSK9 inhibitor #?History of CAD status post stents Patient unsure, but thinks she had a stent placement done in [place] Patient is already on aspirin 81 daily as part of CVA treatment/prevention Dispo: Pending echo to complete CVA workup. Home health with PT on discharge GI PPx: None DVT PPx: SCDs Diet: Cardiac CODE STATUS: Full code Patient seen and care discussed with my attending Dr. Holder. Elham Heller MD PGY-3 Attending Provider Attestation/Addendum I have discussed and was present for the essential components of the history, physical examination, diagnosis, and treatment plan with the resident. I agree with the patient's care as documented by the resident and amended herein by me. Tho Holder DO. Although this document has been carefully reviewed, there may still be some phonetic and other typographical errors. These errors are purely grammatical due to imperfections in the software program and should not be construed in any way to compromise the substance of the patient's medical care during this visit.
--- NOTE | 2024-08-21 13:09 | PC.SS ---
Rounding: Pending ECHO
--- NOTE | 2024-08-21 13:58 | PC.SS ---
Walkers The diagnosis creates mobility limitation that significantly impairs ability to participate in the patients activities of daily living either in their entirety, or in a reasonable time frame. Also the patient is able to safely use the walker and the patient?s mobility is sufficiently resolved with the use of the walker and cane has been ruled out.
--- NOTE | 2024-08-21 14:04 | PC.SS ---
FWW referral submitted via [facility] pending responses
[2024-08-21] MEDS: LOSARTAN POTASSIUM 25 MG TABLET 100 MG PO (14:38)
--- NOTE | 2024-08-21 15:22 | ESCONSULT_ITS ---
Tele Neuro Consultation Consultation Date 08/21/24 Most Recent Vital Signs Last Vital Signs Temp 97.0 F 08/21/24 12:00 Pulse 74 08/21/24 14:38 Resp 16 08/21/24 14:21 BP 133/69 H 08/21/24 14:38 Pulse Ox 96 08/21/24 12:00 O2 Del Method Room Air 08/21/24 08:00 Laboratory-Coagulation Panel PT 10.3 Seconds (9.0-12.2) 08/19/24 17:45 INR 0.9 (0.9-1.3) 08/19/24 17:45 APTT 25.6 Seconds (22.0-36.0) 08/19/24 17:45 Consultation Narrative [facility] TeleNeurology Consult Services Stat Consult Patient Name:???Destiney Chu Date of :???1945 Identification Number:??? Date of Service:???08/21/2024 14:56:27 Diagnosis:?I63.89 - Cerebrovascular accident (CVA) due to other mechanism ([facility]) Impression 79 yo F with PMH of HTN and HLD who was admitted with gait instability and transietn slurred speech. Neurology previously consulted and advised stroke workup be done. Neurology re-consulted today due to clearance for DAPT and possible discharge. CTA head/neck did not show LVO but shows SHEEBA stenosis (can f/u with vascular surgery on outpt basis for this). MRI with left cerebellar st roke and tiny area of stroke possible in left frontal region. Would be ok with discharge with PT per PT's recs. F/u in neurology clinic in next 1-2 months. Full recs as follows: Recommendations: -cont on asa/plavix until vascular surgery f/u -agree with zetia if pt has statin allergy -f/u with vascular surgery for SHEEBA stenosis of 70-80% on outpt basis -f/u in neurology clinic in next 1-2 months -Home health per PT recs -ok to discharge if cleared by medical service otherwise Dispositions :Outpatient Neurology follow up in 3-6 weeks Advanced Imaging:CTA Head and Neck Completed. LVO:No Patient in not a candidate for SUSU Metrics: Dispatch Time: 08/21/2024 14:54:04 Callback Response Time: 08/21/2024 14:56:38 ED Physician not notified of diagnostic impression and management plan because Called number provided by nursing staff to get ahold of primary attending with no answer. Left voicemail with call back number if they had questions. ImagingMRI showing strokes as above Labsreviewed Chief Complaint: imbalance History of Present Illness:Patient is a 79 year old Female. 79 yo F with PMH of HTN and HLD who was admitted with gait instability and transietn slurred speech. Neurology previously consulted and advised stroke workup be done. Neurology re-consulted today due to clearance for DAPT and possible discharge. Per chart review, MRI did show tiny areas of stroke including left cerebellum that would correlate with symptoms on admission. On asa and zetia. PT advising Home health. Patient states she excited to potentially go home today. She states her balance has gotten better, can walk to restroom with walker without assistance (couldn't do that on admission). Denies numbness. Denies weakness. Little slurred speech. No vision changes. ? Past Medical History: ?Hypertension ?Hyperlipidemia Medications: No Anticoagulant use? Antiplatelet use:?Yes?asa Reviewed EMR for current medications Allergies:? Reviewed Social History: Smoking: No Family History: There is no family history of premature cerebrovascular disease pertinent to this consultation ROS : 14 Points Review of Systems was performed and was negative except mentioned in HPI. ? ? Examination: BP(133/69),?Pulse(60),?Blood Glucose(92) 1A: Level of Consciousness - Alert; keenly responsive?+ 0 1B: Ask Month and Age - Both Questions Right?+ 0 1C: Blink Eyes & Squeeze Hands - Performs Both Tasks?+ 0 2: Test Horizontal Extraocular Movements - Normal?+ 0 3: Test Visual Mayes - No Visual Loss?+ 0 4: Test Facial Palsy (Use Grimace if Obtunded) - Minor paralysis (flat nasolabial fold, smile asymmetry)?+ 1 5A: Test Left Arm Motor Drift - No Drift for 10 Seconds?+ 0 5B: Test Right Arm Motor Drift - No Drift for 10 Seconds?+ 0 6A: Test Left Leg Motor Drift - No Drift for 5 Seconds?+ 0 6B: Test Right Leg Motor Drift - No Drift for 5 Seconds?+ 0 7: Test Limb Ataxia (FNF/Heel-Anderson) - No Ataxia?+ 0 8: Test Sensation - Normal; No sensory loss?+ 0 9: Test Language/Aphasia - Normal; No aphasia?+ 0 10: Test Dysarthria - Normal?+ 0 11: Test Extinction/Inattention - No abnormality?+ 0 NIHSS Score:?1 This consult was conducted in real time using interactive audio and video technology. Patient was informed of the technology being used for this visit and agreed to proceed. Patient located in hospital and provider located at home/of fice setting. Patient is being evaluated for possible acute neurologic impairment and high probability of imminent or life - threatening deterioration.I spent total of 25 minutes providing care to this patient, including time for face to face visit via telemedicine, review of medical records, imaging studies and discussion of findings with providers, the patient and / or family. Dr Gentry Abraham [facility] For Inpatient follow-up with [facility] physician please call [facility] at . As we are not an outpatient service for any post hospital discharge needs please contact the hospital for assistance. If you have any questions for the [facility] physicians or need to reconsult for clinical or diagnostic changes please contact us via [facility] at . ?
--- NOTE | 2024-08-21 16:45 | PD.RESDS ---
Planned Discharge Date 08/21/24 DS: Providers Provider Date of admission: 08/19/24 21:44 Primary care physician: Ag Rosa MD Admitting Provider: Kenny Couch MD Attending Provider on Admission: Kenny Couch MD Consults: 08/19/24 17:44 Consult to Neurology / Tele-Neurology Routine Comment: Consulting Provider: [facility] 08/19/24 21:50 Referral Physical Therapy Routine Comment: Physician Instructions: 08/19/24 21:52 Referral Speech Therapy Routine Comment: 08/20/24 00:31 Consult to Neurology / Tele-Neurology Routine Comment: Consulting Provider: [facility] 08/20/24 00:57 Referral Physical Therapy Routine Comment: Physician Instructions: 08/21/24 07:50 Consult to Neurology / Tele-Neurology Routine Comment: CVA Consulting Provider: Caleb Albarado Attending Provider on DC: Elham Heller MD Discharging Provider: Elham Heller MD DS: Diagnosis Problem List Completed Was Problem List Reviewed/Reconciled?: Yes Hospital Course Hospital Course Hospital course: Patient was an 79-year-old female with HTN, HLD who presented to the ED with slurring speech and gait instability. Head CT was negative. MRI revealed a a 13 x 10 mm acute infarct in the left cerebellar peduncle and suspicion for 5 mm acute infarct in left inferior frontal lobe. Teleneurology was consulted in ED and recommendations were followed. A1c, TSH were within normal limits. Lipid panel was significant for LDL >100. Patient was started on 81 mg aspirin, however is allergic to statins, therefore was started on Zetia. PT recommended HH-PT which was ordered. Of note, head/neck CTA was concerning for heavy calcification in RCA and R ICA, however MRA showed no significant carotid stenoses. Patient's case was discussed with her advertising sales consultant outpatient. She recently had a carotid ultrasound taken which showed approximately 40% stenosis. Additionally she also had an echo taken outpatient which was normal. Teleneurology was consulted for final recommendations, and patient was cleared for discharge home. Discharge plan was discussed extensively with patient's son over the phone. #Acute ischemic CVA #HTN #HLD #?History of CAD status post stents Discharge plan Follow-up with your PCP within 7 days of discharge Follow-up with Dr. Nicholas within 1 to 2 weeks of discharge Follow-up with Dr. Albarado (neurologist) within 1 to 2 weeks of discharge. Her office number is to schedule an appointment. You may need a referral from your primary care provider. Take aspirin 81 mg daily indefinitely. Take clopidogrel (Plavix) 75 mg daily for 3 weeks. Once you follow-up with Dr. Albarado, she can decide on whether to continue the Plavix or not. Take Zetia 10 mg daily as prescribed to lower your cholesterol. LDL goal is <70 Take antihypertensive medications as prescribed by PCP Patient seen and care discussed with my attending Dr. Holder. Elham Heller MD PGY-3 Status at Discharge Cognitive/behavioral status at discharge: AAOx3 Time Spent with Patient Time attestation: Total time spent providing and/or coordinating discharge services: Time spent: Greater than 30 minutes Home Health Home Health Referral Orders: 08/20/24 11:58 Home Health Referral Routine Reason For Exam: debility Home-Bound The patient must either because of illness or injury, need the aid of supportive devices such as crutches, canes, wheelchairs, and walkers; the use of special transportation; or the assistance of another person in order to leave their place of residence; OR have a condition such that leaving his or her home is medically contraindicated. In addition, the patient also meets the following criteria: patient is normally unable to leave the home and leaving home requires considerable taxing effort. Addendum to Home Health Certification Practitioner's Certification: I certify that the patient has been under my care in the hospital and the care of attending physician (see below). We had a [id number] encounter on (see date below). My clinical findings indicate that the patient is home bound per the above criteria and the Home Health Services noted in these orders are medically necessary. The primary reason for the [id number] encounter is related to the fact that the patient requires home health services. Date Certifying Iyje-cw-Lvuc Physician Encounter: 08/19/24 Physician's Name who will Assume Oversight for Services: Ag Rosa Physician's Phone No.who will Assume Oversight for Service: [employer]FINING [employer]ER - Community Resources: No PT to Evaluate: Yes PT to evaluate and provide a treatmnet plan to increase patient's mobility and strength. Wound Care: No IV Therapy: No Discontinue PICC Line Once Treatment Complete: No RN Safety Evaluation: Yes RN to evaluate and create a plan of care that will produce positive outcomes. Palliative Treatment: No Palliative treatment and evaluate the need for hospice. Home Health Aide - Personal Care: No Home Health Aide to assist with any ADL's. Exam Vital Signs Temp Pulse Resp BP Pulse Ox O2 Del Method 97.0 F 69 16 133/69 H 96 Room Air 08/21/24 12:00 08/21/24 16:00 08/21/24 14:21 08/21/24 14:38 08/21/24 12:00 08/21/24 08:00 Narrative Exam Gen: AAOx3, resting comfortably, answers Qs appropriately, pleasant to speak with HEENT: NCAT, PERRLA, EOMI, MMM, no LAD CVS: normal S1, S2. RRR. No MRG Resp: CTA B/L. No rhonchi, rales, crackles or wheezing Abd: soft, non-tender, non-distended. BS+ in all 4 quadrants MSK: Good ROM in BUE & BLE. No edema or rash. Neuro: CN II-XII grossly intact. Strength 5/5 in BUE & BLE. No motor or sensory deficits noted Discharge Plan Plan Patient Disposition: Home w/HOME HEALTH Patient condition on transfer: Stable Care Plan Goals: Follow-up with your PCP within 7 days of discharge Follow-up with Dr. Nicholas within 1 to 2 weeks of discharge Follow-up with Dr. Albarado (neurologist) within 1 to 2 weeks of discharge. Her office number is to schedule an appointment. You may need a referral from your primary care provider. Take aspirin 81 mg daily indefinitely. Take clopidogrel (Plavix) 75 mg daily for 3 weeks. Once you follow-up with Dr. Albarado, she can decide on whether to continue the Plavix or not. Take Zetia 10 mg daily as prescribed to lower your cholesterol. LDL goal is <70 Take antihypertensive medications as prescribed by PCP Prescriptions/Referrals Prescriptions/Med Rec: New aspirin 81 mg Tablet,Delayed Release (Dr/Ec) 81 mg PO QDAY 30 Days Qty: 30 0RF ezetimibe 10 mg Tablet 10 mg PO QDAY 30 Days Qty: 30 0RF clopidogrel 75 mg tablet 75 mg PO QDAY 21 Days Qty: 21 0RF amlodipine 2.5 mg Tablet 2.5 mg PO QDAY Qty: 0 0RF losartan 25 mg Tablet 100 mg PO QDAY Qty: 0 0RF Continued loratadine [Claritin] 10 MG tablet 10 mg PO QDAY Qty: 0 Discontinued aspirin 81 mg Tablet,Delayed Release (Dr/Ec) 81 mg PO QDAY Referrals: Ag Rosa MD [Primary Care Provider] - Caleb Albarado MD [Physician] - Patient/Caregiver Discharge Instructions Discharge Activity: as per physical therapy Education Materials: Stroke: Taking Medicines, Risk Factors for Stroke Print Language: Bruneian Stand Alone Forms: Lillian Award Info., Patient Portal Info Letter Discharge Order Discharge Orders: Discharge (Routine); Ordered 08/21/24 Ordered By: Elham Heller Quality Discharge Quality Measures VTE prophylaxis (SCDs) and stroke Statin ordered >75 y/o:moderate or high intensity dose on DC: no Statin ordered <75 y/o: high intensity dose on DC: no Statin not ordered due to:: drug allergy Anticoagulation ordered for A-fib or flutter (current or hx): not indicated Antithrombotic ordered on DC: ordered MD Attestestation Attestation I have discussed and was present for the essential components of the discharge history, physical examination, diagnosis, and discharge treatment plan with the resident. I agree with the patient's discharge care as documented by the resident and amended herein by me. Tho Holder DO. The patient understood all discharge instructions, all questions were answered satisfactorily. The patient was instructed to return to the Emergency Department is symptoms worsened or persisted. Although this document has been carefully reviewed, there may still be some phonetic and other typographical errors. These errors are purely grammatical due to imperfections in the software program and should not be construed in any way to compromise the substance of the patient's medical care during this visit.
--- NOTE | 2024-08-21 18:18 | PC.NURSE ---
Arrived to patients room, Tiansheng informed me that wallpaper scraper was off. I found the grandson at bedside, on his phone and patient is in the bathroom trying to get dressed without assistance. She was tangled up in her gown with one leg in her sweatpants. She is unstable and without walker. I helped the patient get her sweatpants on and helped her back to bed. Her wallpaper scraper was reapplied and education given to the patient and the grandson concerning safety and protocol to keep equipment on during stay, and to call for assistance while ambulating. They both verbalized understanding.
--- NOTE | 2024-08-21 19:00 | ESCONSULT_ITS ---
RE: STEVEN HARTLEY : 1945 DATE OF CONSULTATION: 08/21/2024 REASON FOR CONSULTATION: Evaluation of TIA versus stroke, carotid disease. HISTORY OF PRESENT ILLNESS: The patient is an 79-year-old female, very well known to me, who has longstanding hypertension, hypercholesterolemia, carotid disease, previous carotid endarterectomy. Had an endarterectomy on the left side, has mild stenosis in right internal carotid artery. I went to the hospital because she is having episodes of dysarthria and incoordination. She was walking with incoordination, cerebellar stroke symptoms, and slurred speech, mostly dysarthria. ALLERGIES: NONE. MEDICATIONS: The patient is being treated now with aspirin 81 mg daily, also amlodipine 2.5 mg daily for hypertension, losartan 100 mg daily, Zetia 10 mg daily. The patient did have intolerance to statins, did not tolerate any statins. I was contemplating giving the patient Leqvio as an outpatient. She is still having intermittent speech issues and incoordination, but no problem with strength. PAST MEDICAL HISTORY: Hypertension, hypercholesterolemia, carotid endarterectomy. No previous history of stroke. SOCIAL HISTORY: The patient lives alone. Does not smoke, drink alcoholic beverage. FAMILY HISTORY: Noncontributory. PHYSICAL EXAMINATION: GENERAL: A well-nourished female, alert, awake, in no acute distress. VITAL SIGNS: Blood pressure is 133/69. Pulse rate is 74. Respirations 16. Temperature is normal. HEENT: Head is atraumatic, normocephalic. Eyes normal. ENT unremarkable. NECK: Supple. No JVD or carotid pulses palpable. No bruit. CHEST: Symmetrical. LUNGS: Lungs are mostly clear. HEART: S1, S2, regular. No gallops or murmurs. ABDOMEN: Thin and soft. EXTREMITIES: No edema. NEUROLOGIC: There is some incoordination, but strength is normal. Currently, speech is also normal. There is _ history of intermittent slurred speech. DIAGNOSTIC DATA: Investigations so far showed that the patient's CT scan of the head and neck showed questionable right internal carotid artery stenosis. The patient did have right external carotid artery disease, not internal carotid artery stenosis by ultrasound examination. MRI and MRA showed no extracranial carotid artery stenosis. In fact, they are widely patent. She also has evidence of acute infarction in the left cerebellar peduncle and also suspicion of 5 mm acute infarct in the left inferior frontal lobe. The patient's symptoms are correlated with cerebellar infarction and incoordination. IMPRESSION/ASSESSMENT: 1. 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 2. Mild stenosis of right internal carotid artery. CT scan is a false finding. 3. Hypertension. 4. Hypercholesterolemia, unable to tolerate statin. RECOMMENDATIONS: Recommended the patient to be discharged on aspirin, Zetia, and her blood pressure medication, losartan, and I will see her for followup in my office. Start on Leqvio for aggressive management of hypercholesterolemia since she could not take a statin. I did a carotid ultrasound examination only a week away in my office. Velocities are normal. She does have right external carotid artery moderate stenosis, but internal carotid artery is patent with 1.2 meter velocity, possibly less than 50% diameter stenosis. No need for any carotid endarterectomy. Her symptoms also did not correlate with the carotid disease. Left carotid endarterectomy site is completely normal. Okay to discharge the patient. See her for followup in 1 to 2 weeks in my office. DT: 15:37:03 TT: 18:59:00 Ref: [id number] - TID: [id number] [facility]
--- NOTE | 2024-08-22 08:08 | PC.CM ---
Addendum entered by Claudia Garcia RN 08/23/24 12:10: [facility] will open patient on 08/27 per patient's request. Addendum entered by Shy Cleveland RN 08/22/24 08:29: [facility] accepted the pt. [facility]ed [facility]. Pending start of care date. Original Note: Per SS notes, there is no preference for Home Health agency. HH referral sent on [facility]. Awaiting responses. Pending start of care date.
== END 2024-08-21 18:08 | disposition home health service (06) | DRG 66 ==
LOC: SERX 20:06 → SERHOLD 22:07 → S2NX 08-20 00:40
PROVIDERS: Nurse Practitioner Family; Admitting Provider Student in an Organized Health Care Education/Training Program; Emergency Provider Emergency Medicine; PCP Internal Medicine; Visit Provider Student in an Organized Health Care Education/Training Program
DX: I63.542 Cerebral infarction due to unspecified occlusion or stenosis of left cerebellar artery (principal); R47.81 Slurred speech; I10 Essential (primary) hypertension; R47.1 Dysarthria and anarthria; I25.10 Atherosclerotic heart disease of native coronary artery without angina pectoris; Z95.5 Presence of coronary angioplasty implant and graft; E78.5 Hyperlipidemia, unspecified; R29.702 NIHSS score 2; I65.21 Occlusion and stenosis of right carotid artery; I44.7 Left bundle-branch block, unspecified; R26.89 Other abnormalities of gait and mobility
CPT/HCPCS: 36415; 70450; 70496; 70498; 70544; 80053; 80061; 80307; 81001; 83036; 83735; 84100; 84439; 84443; 84484; 85025; 85610; 85730; 87086; 92610; 93005; 97162; 99285; A4649; Q9967; A9270

== ENCOUNTER 2024-09-07 06:32 | Day surgery (SDC) | payer MEDICARE, SELFPAY ==
[2024-09-06 11:47] VITALS: BMI 26.0
--- NOTE | 2024-09-06 11:59 | EKG_ITS ---
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 : 1945 Requested By: Yarelis Nunez Order Number: [id number] Reading MD: Yarelis Nunez Measurements Intervals [place] Rate: 68 P: 69 RI: 181 QRS: -30 QRSD: 140 T: 83 QT: 416 QTc: 445 Interpretive Statements SINUS RHYTHM WITH OCCASIONAL VENTRICULAR PREMATURE COMPLEXES INTRAVENTRICULAR CONDUCTION DELAY POSSIBLE ANTERIOR MYOCARDIAL INFARCTION , OF INDETERMINATE AGE Compared to ECG 08/19/2024 18:30:40 Ventricular premature complex(es) now present Intraventricular conduction delay now present Myocardial infarct finding now present Left bundle-branch block no longer present /store/S0/[id number]/ecg/[id number].pdf
[2024-09-06 14:09] LABS: Basophils # (Auto) 0.1 Thou/mm3 (0.0-0.2); Basophils % (Auto) 1 % (0-2.5); Eosinophils # (Auto) 0.1 Thou/mm3 (0.0-0.5); Eosinophils % (Auto) 2 % (0-10); Hematocrit 38.8 % (36.0-46.0); Hemoglobin 12.9 g/dL (12.0-16.0); Immature Granulocytes % (Auto) 0 % (0-0); Immature Granulocytes Auto 0.01 Thou/mm3 (0.00-0.00); Lymphocytes # (Auto) 1.8 Thou/mm3 (1.0-4.8); Lymphocytes % (Auto) 28 % (10-50); Mean Corpuscular HGB Conc 33.2 g/dl (31.0-37.0); Mean Corpuscular Hemoglobin 30.5 pg (25.0-35.0); Mean Corpuscular Volume 92 fL (80-100); Monocytes # (Auto) 0.6 Thou/mm3 (0.0-0.8); Monocytes % (Auto) 10 % (0-12); Neutrophils # (Auto) 3.6 Thou/mm3 (1.8-7.7); Neutrophils % (Auto) 58 % (37-80); Nucleated Red Blood Cell % 0 /100 WBC (0); Platelet Count 249 Thou/mm3 (140-440); RDW Standard Deviation 40.9 fL (36.4-46.3); Red Blood Count 4.23 Miln/mm3 (4.00-5.20); White Blood Count 6.2 Thou/mm3 (3.6-11.0)
[2024-09-06 14:17] LABS: INR 0.9 (0.9-1.3); Partial Thromboplastin Time 26.4 Seconds (22.0-36.0); Prothrombin Time 10.4 Seconds (9.0-12.2)
[2024-09-06 14:19] LABS: Anion Gap 8 (7-16); BUN/Creatinine Ratio 23 Ratio (12-20); Blood Urea Nitrogen 21 mg/dL (9-23); Calcium 9.5 mg/dL (8.3-10.6); Carbon Dioxide 28.6 mMol/L (20.0-31.0); Chloride 104 mMol/L (98-107); Creatinine (Component) 0.9 mg/dL (0.6-1.3); Estimated Creatinine Clearance 42.3 mL/min (>60); Glucose 142 mg/dL (74-106); Osmolality,Calculated 286 (275-295); Potassium 3.8 mMol/L (3.4-5.1); Sodium 141 mMol/L (136-145); eGFR > 60 See Note
[2024-09-07] VITALS (9 sets, daily range): BP systolic 160–182; BP diastolic 69–89; PULSE 78–91; RESP 16–21; TEMP 36.4–37.1; O2SAT 93–98
--- NOTE | 2024-09-07 17:37 | ESOP_ITS ---
RE: STEVEN HARTLEY : 1945 DATE OF OPERATION: 09/07/2024 PROCEDURE PERFORMED: 1. Selective catheter placement of aortic arch, aortic arch angiogram. 2. Selective catheter placement in the right common carotid artery, carotid and cerebral angiogram. cpt 29793 3. Selective catheter placement in left common carotid artery, carotid and cerebral angiogram.cpt 47071 4. Selective catheter placement in right vertebral artery and vertebral angiogram. cpt 71240 5. Selective catheter placement in left vertebral artery and vertebral angiogram and cerebral angiogram. 6. Conscious sedation. 7. Iliofemoral angiogram followed by Angioseal deployment. DIAGNOSES: Cerebral stroke and carotid stenosis, questionable severe stenosis of right internal carotid artery. HISTORY AND INDICATIONS: The patient is an 79-year-old lady with history of hypertension, hypercholesterolemia, carotid endarterectomy, recently hospitalized with cerebellar stroke, was discharged home. There was a question of carotid stenosis, conflicting reports. Ultrasound showed moderate stenosis. MRI and CT were conflicting. CTA showed possible stenosis of the right internal carotid artery, described as moderate 70% to 80% stenosis at the origin with heavily calcified lesion. Difficult to ascertain whether this is severe enough to warrant surgery, hence carotid angiogram and cerebral angiogram was recommended, because of cerebral stroke and vertebral artery possible stenosis, bilateral vertebral angiogram was recommended. DESCRIPTION OF PROCEDURE: The patient was brought to cardiac catheterization laboratory. She was given conscious sedation, 1 mg Versed, 50 mcg of fentanyl for sedation. Right femoral artery cannulated by ultrasound guidance and micropuncture technique and a [place] sheath was introduced. [place] pigtail catheter advanced to right aortic arch, aortic arch angiogram performed digital subtraction subsequently. Felton 2 diagnostic catheter [place] catheter was used to cannulate left common carotid, left carotid stable angiogram performed. Subsequently JV1 diagnostic catheter used to perform vertebral angiogram. Both right and left ventricular angiogram was performed. Subsequently, Fel[place] 3, [place] catheter was used to perform right common carotid and carotid angiogram and cerebral angiogram performed. The patient tolerated the procedure well, no complication. Iliofemoral angiogram performed and Angioseal was deployed successfully. The patient's sedation was 2 mg Versed and 4 mg of morphine. FINDINGS: The aortic arch is calcified and mild plaque. Type B aortic arch is seen. showed origin of common carotid arteries, innominate artery, left common carotid artery and all vertebral arteries. Both vertebral arteries are seen. Selective angiogram showed following findings. Innominate artery appear normal. Right subclavian artery is normal. Right vertebral artery appears normal, both in intracranial portion as well extracranial portion normal. Right common carotid artery is normal. Right internal carotid artery showed calcification with moderate 40% to less than 50% stenosis of the right internal carotid artery with a calcified eccentric plaque. Cerebral angiogram showed anterior middle cerebral arteries appear normal. Venous phase is normal. No malformations or aneurysm detected. Left common carotid artery is normal. Left internal carotid artery shows mild plaque. No significant stenosis. Left cerebral angiogram showed left anterior middle cerebral artery is normal. Left ventricular artery appears normal. There is evidence of either tortuosity or kink just below the neck where there may be mild to moderate disease, but there is no stenosis seen, significant lesion. Left subclavian artery is normal. SUMMARY OF FINDINGS: 1. 40% to 50% stenosis to the right internal carotid artery with heavy calcification, eccentricity. No significant stenosis to warrant intervention. 2. Normal left carotid system. 3. Normal cerebral angiogram. 4. Moderate tortuosity and possible kink with mild to moderate stenosis of the left vertebral artery. RECOMMENDATIONS: Continue medical management. No need for any surgical intervention or percutaneous intervention. cc: Yarelis Cristina MD DT: 16:33:42 TT: 17:20:00 Ref: [id number] - TID: [id number] [facility]
== END 2024-09-07 11:15 | disposition home or self-care (01) ==
PROVIDERS: PCP Internal Medicine; Referring Provider Internal Medicine Cardiovascular Disease; Visit Provider Internal Medicine Cardiovascular Disease
PROC: (CPT 75600; principal; 2024-09-07 07:30)
DX: I65.21 Occlusion and stenosis of right carotid artery (principal); E78.00 Pure hypercholesterolemia, unspecified; I10 Essential (primary) hypertension; Z01.810 Encounter for preprocedural cardiovascular examination; Z86.73 Personal history of transient ischemic attack (TIA), and cerebral infarction without residual deficits
CPT/HCPCS: 36225; 36223; 36222; G0278; 36415; 80048; 85025; 85610; 85730; 93005; A4649; C1751; C1760; C1769; C1894; J0171; J0461; J1643; J2250; J2310; J2371; J3010; J3490; Q9967; J2305

== ENCOUNTER → 2025-03-10 | Outpatient (CLI) | payer OTHER, SELFPAY ==
--- NOTE | 2025-03-10 11:15 | XR_ITS ---
Examination: Screening digital mammography, bilateral Computer aided detection 3-D breast Tomosynthesis, bilateral Date and time of exam: March 10, 2025 1127 hours Compared to mammograms dating to October 06, 2015 Indication: Screening Technique: Nonmagnified MLO, CC views of the breasts to been obtained, reconstructed from 3-D Tomosynthesis images. R2 computer aided detection program utilized for evaluation of suspicious masses and/or abnormal calcifications. 3-D Tomosynthesis images obtained. Findings: Scattered areas of fibroglandular density Benign calcifications. No interval suspicious masses Impression: BI-RADS category II: Benign Findings. Recommend 1 year follow-up mammogram.
[2025-03-10 12:17] LABS: Basophils # (Auto) 0.0 Thou/mm3 (0.0-0.2); Basophils % (Auto) 1 % (0-2.5); Eosinophils # (Auto) 0.1 Thou/mm3 (0.0-0.5); Eosinophils % (Auto) 2 % (0-10); Hematocrit 38.4 % (36.0-46.0); Hemoglobin 12.6 g/dL (12.0-16.0); Immature Granulocytes Auto 0.01 Thou/mm3 (0.00-0.00); Lymphocytes # (Auto) 1.2 Thou/mm3 (1.0-4.8); Lymphocytes % (Auto) 24 % (10-50); Mean Corpuscular HGB Conc 32.8 g/dl (31.0-37.0); Mean Corpuscular Hemoglobin 30.0 pg (25.0-35.0); Mean Corpuscular Volume 91 fL (80-100); Monocytes # (Auto) 0.5 Thou/mm3 (0.0-0.8); Monocytes % (Auto) 9 % (0-12); Neutrophils # (Auto) 3.2 Thou/mm3 (1.8-7.7); Neutrophils % (Auto) 64 % (37-80); Nucleated Red Blood Cell # 0.00 Thou/mm3 (0.00-0.00); Nucleated Red Blood Cell % 0 /100 WBC (0); Platelet Count 185 Thou/mm3 (140-440); RDW Standard Deviation 42.8 fL (36.4-46.3); Red Blood Count 4.20 Miln/mm3 (4.00-5.20); White Blood Count 5.1 Thou/mm3 (3.6-11.0)
[2025-03-10 12:28] LABS: Glucose Estimated Average 114 mg/dL (80-131); Hemoglobin A1C 5.6 % Hgb (4.8-6.0)
[2025-03-10 12:44] LABS: Alanine Aminotransferase 18 U/L (10-49); Albumin, Serum 4.4 gm/dL (3.4-4.8); Albumin/Globulin Ratio 1.7 (1.2-2.2); Alkaline Phosphatase 114 U/L (46-116); Anion Gap 15 (7-16); Aspartate Amino Transferase 29 U/L (0-34); BUN/Creatinine Ratio 28 Ratio (12-20); Bilirubin,Total 0.5 mg/dL (0.3-1.2); Blood Urea Nitrogen 22 mg/dL (9-23); Calcium 9.1 mg/dL (8.3-10.6); Calcium (Corrected) 9.1 mg/dL (8.5-10.1); Carbon Dioxide 23.8 mMol/L (20.0-31.0); Cardiac Risk Estimate 2.0 RATIO (3.7-5.6); Chloride 107 mMol/L (98-107); Cholesterol 145 mg/dL (132-200); Creatinine (Component) 0.8 mg/dL (0.6-1.3); Free T4 (Free Thyroxine) 0.94 ng/dL (0.89-1.76); Globulin 2.6 gm/dL (2.3-3.5); Glucose 91 mg/dL (74-106); HDL Cholesterol 72 mg/dL (40-60); LDL Cholesterol,Calculated 57 mg/dL (0-130); Osmolality,Calculated 293 (275-295); Potassium 3.7 mMol/L (3.4-5.1); Sodium 146 mMol/L (136-145); Thyroid Stimulating Hormone 2.40 uIU/mL (0.55-4.78); Total Protein 7.0 gm/dL (5.7-8.2); Triglycerides 80 mg/dL (30-150); eGFR > 60 See Note
[2025-03-10 12:57] LABS: Vitamin D 25 Hydroxy Total 29.2 ng/mL (7.3-40.2)
== END | disposition home or self-care (01) ==
LOC: CDIM 11:15 → COPL 11:37
PROVIDERS: Referring Provider Internal Medicine; Visit Provider Internal Medicine
DX: Z12.31 Encounter for screening mammogram for malignant neoplasm of breast (principal); Z00.00 Encounter for general adult medical examination without abnormal findings; R92.323 Mammographic fibroglandular density, bilateral breasts; R92.1 Mammographic calcification found on diagnostic imaging of breast
CPT/HCPCS: 36415; 77063; 77067; 80053; 80061; 82306; 83036; 84439; 84443; 85025